=== PATIENT | female | born 2000 | race American Indian/Alaskan Native ===

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

== ENCOUNTER 2019-04-16 09:56 | Emergency (ER) | payer MEDICAID ==
[2019-04-16 10:15] VITALS: BP 112/68
--- NOTE | 2019-04-16 11:35 | Emergency Department Report ---
ED Medical Clearance HPI - General Chief complaint: Medical Clearance Stated complaint: ROGAIN SHOT/ Time Seen by Provider: 04/16/19 11:15 Source: patient Mode of arrival: Ambulatory Limitations: No Limitations - History of Present Illness Initial comments: This is a 18-year-old -[place] female who presents to the emergency room for Rhogam shot. Patient states she was sent here from [facility] for Rhogam shot. Her last menstrual period was 10/20/2018, . She denies abdominal pain, vaginal bleeding, back pain, nausea or vomiting. MD Complaint: medical clearance request Reason for Medical Clearance: laboratory abnormality Place: other (OBGYN office) Alledged Intoxication: No Associated Symptoms: denies other symptoms. denies: chest pain, shortness of breath, palpitations, diaphoresis, cough, rash Treatments Prior to Arrival: none Allergies/Adverse reactions: Allergies Allergy/AdvReac Type Severity Reaction Status Date / Time No Known Allergies Allergy Unverified 10/18/18 14:27 ED Review of Systems ROS: Stated complaint: ROGAIN SHOT/ Other details as noted in HPI Constitutional: denies: chills, fever Respiratory: denies: cough, shortness of breath, wheezing Cardiovascular: denies: chest pain, palpitations Gastrointestinal: denies: abdominal pain, nausea, diarrhea Musculoskeletal: denies: back pain, joint swelling, arthralgia Skin: denies: rash, lesions Neurological: denies: headache, weakness, paresthesias Psychiatric: denies: anxiety, depression ED Past Medical Hx - Past Medical History Previous Medical History?: No - Surgical History Past Surgical History?: No - Social History Smoking Status: Never Smoker Substance Use Type: None ED Physical Exam - General Limitations: No Limitations General appearance: alert, in no apparent distress - Respiratory Respiratory exam: Present: normal lung sounds bilaterally. Absent: respiratory distress - Cardiovascular Cardiovascular Exam: Present: regular rate, normal rhythm. Absent: systolic murmur, diastolic murmur, rubs, gallop - GI/Abdominal GI/Abdominal exam: Present: soft, normal bowel sounds - Neurological Exam Neurological exam: Present: alert, oriented X3 - Psychiatric Psychiatric exam: Present: normal affect, normal mood - Skin Skin exam: Present: warm, dry, intact, normal color. Absent: rash ED Course Vital Signs 04/16/19 10:14 Temperature 98.3 F Pulse Rate 81 Respiratory 20 Rate Blood Pressure 112/68 O2 Sat by Pulse 98 Oximetry - Reevaluation(s) Reevaluation #1: 04/16/19 15:08 I was informed by nursing staff that patient was not a room when Rhogam was ready for administration. The nurse called the patient and patient states she is down the street and will return for injection. ED Medical Decision Making - Medical Decision Making Patient was examined by me. Patient is nontoxic appearing and stable. Vitals are normal. Obtained Rhogam workup. Blood type is negative. Rhogam immunoglobulin is ordered. Nursing staff inform patient below prior to administration. Nursing staff spoke with patient and patient states she will return for administration. Prior to shift ending patient never returned. A shunt left AGAINST MEDICAL ADVICE. ED Disposition Clinical Impression: Left against medical advice Disposition: - LEFT AGAINST MED ADVICE Is pt being admited?: No Condition: Stable Referrals: PRIMARY CARE [Primary Care Provider] - 3-5 Days
== END 2019-04-16 14:40 | disposition left against medical advice (07) ==
LOC: ED 09:56
DX: O36.0910 Maternal care for other rhesus isoimmunization, first trimester, not applicable or unspecified (principal); Z3A.01 Less than 8 weeks gestation of pregnancy; Z53.21 Procedure and treatment not carried out due to patient leaving prior to being seen by health care provider
CPT/HCPCS: 36415; 84703; 85461; 86850; 86900; 86901; 96372; 99283; J2790

== ENCOUNTER 2019-06-12 13:23 | Inpatient (IN) | payer MEDICAID ==
[2019-06-12] MEDS ORDERED: fentaNYL 100 MCG/2 ML INJ IV PRN (15:26)
[2019-06-12] MEDS ORDERED: LIDOCAINE (2%) 20 MG/1 ML VIAL 20 ML MDV INFILTRATI ONE (15:26)
[2019-06-12] MEDS ORDERED: TERBUTALINE 1 MG/1 ML INJ SUB-Q PRN (15:26)
[2019-06-12] MEDS ORDERED: MINERAL OIL 30 ML ORAL LIQD PO PRN (15:26)
[2019-06-12] MEDS ORDERED: BUTORPHANOL 2 MG/1 ML INJ IV PRN (15:26)
[2019-06-12] MEDS ORDERED: TERBUTALINE 1 MG/1 ML INJ IVP PRN (15:26)
[2019-06-12] MEDS ORDERED: NALOXONE 0.4 MG/1 ML INJ IV PRN (15:26)
[2019-06-12] MEDS ORDERED: DINOPROSTONE 10 MG VAG SUPP VG ONE (15:26)
[2019-06-12] MEDS ORDERED: ePHEDrine SULFATE 50 MG/1 ML INJ IV PRN (15:26)
[2019-06-12 15:59] LABS: Bilirubin,Urine NEG (Negative); Blood,Urine NEG (Negative); Color,Urine Yellow (Yellow); Mucus,Urine FEW /HPF; Protein,Urine <15 mg/dL mg/dL (Negative); RBC,Urine < 1.0 /HPF (0.0-6.0); Urobilinogen,Urine < 2.0 mg/dL (<2.0)
[2019-06-12] MEDS ORDERED: OXYTOCIN 20 UNIT/1000ML DRIP 20 UNITS/1,000 ML BAG IV SCH (16:00)
[2019-06-12] MEDS ORDERED: OXYTOCIN DRIP 30 UNITS/500 ML BAG IV SCH (16:00)
[2019-06-12 17:10] LABS: Hemoglobin 10.8 gm/dl (10.1-14.3); Mean Corpuscular HGB Conc 33 % (30-34); Mean Corpuscular Volume 86 fl (79-97); Platelet Count 176 K/mm3 (140-440); Red Blood Count 3.84 M/mm3 (3.65-5.03); Red Cell Distribution Width 14.2 % (13.2-15.2)
[2019-06-12 17:31] LABS: Alanine Aminotransferase 9 units/L (7-56); Uric Acid 6.5 mg/dL (3.5-7.6)
--- NOTE | 2019-06-12 21:07 | History and Physical Report ---
History of Present Illness Date of examination: 06/12/19 Date of admission: 06/12/19 13:24 Chief complaint: sent from the office for induction History of present illness: Pt is a 18 year old -Surinamese primigravida HETAL 06/16/19 at 39w3d who presents from [facility] office with elevated blood pressures 140s/90s with instructions for delivery secondary to gestational hypertension. She denies headache, blurry vision, scotomata or RUQ pain. She has had care at [facility] since 14 wks complicated by RH negative status, Quad screen positive for Down's Syndrome, NIPT normal followed by [facility], genital herpes without lesion or prodrome and lapse of care between 33 and 39 wks. She is GBS unknown. Past History Past Medical History: hypertension (gestational hypertension per HPI ) Past Surgical History: no surgical history [employer] History: herpes (no lesion or prodrome ) Family/Genetic History: hypertension Social history: no significant social history - Obstetrical History Expected Date of Delivery: 06/16/19 Actual Gestation: 39 Week(s) 3 Day(s) : 1 Medications and Allergies Allergies Allergy/AdvReac Type Severity Reaction Status Date / Time No Known Allergies Allergy Verified 06/12/19 15:31 Active Meds: Active Medications Butorphanol Tartrate (Stadol) 2 mg IV Q2H PRN PRN Reason: Pain , Severe (7-10) Ephedrine Sulfate (Ephedrine Sulfate) 10 mg IV Q2M PRN PRN Reason: Hypotension Fentanyl (Sublimaze) 100 mcg IV Q2H PRN PRN Reason: Labor Pain Oxytocin/Sodium Chloride (Pitocin/Ns 20 Unit/1000ml Drip) 20 units in 1,000 mls @ 125 mls/hr IV DIRECT JENIFER Oxytocin/Sodium Chloride (Pitocin/Ns 30 Unit/500ml) 30 units in 500 mls @ 2 mls/hr IV TITR JENIFER; Protocol Lactated Ringer's (Lactated Ringers) 1,000 mls @ 125 mls/hr IV DIRECT JENIFER Mineral Oil (Mineral Oil) 30 ml PO QHS PRN PRN Reason: Constipation Naloxone HCl (Naloxone) 0.1 mg IV Q2MIN PRN PRN Reason: Res Rate </= 8 or 02 SAT < 92% Terbutaline Sulfate (Brethine) 0.25 mg SUB-Q ONCE PRN PRN Reason: Hyperstimulation/Hypertonicity Terbutaline Sulfate (Brethine) 0.25 mg IVP ONCE PRN PRN Reason: Hyperstimulation/Hypertonicity Review of Systems All systems: negative - Vital Signs Vital signs: Vital Signs Pulse Pulse Ox 70 100 06/12/19 15:39 06/12/19 15:39 Temp Pulse Resp BP Pulse Ox 97.7 F 77 20 140/88 100 06/12/19 18:19 06/12/19 21:01 06/12/19 18:19 06/12/19 20:35 06/12/19 21:01 - Physical Exam Breasts: Positive: deferred Cardiovascular: Regular rate Lungs: Positive: Clear to auscultation Abdomen: Positive: soft (gravid ) Uterus: Positive: enlarged (gravid ) Extremities: Positive: normal - Obstetrical FHR: auscultation normal Uterine Contraction Monitor Mode: External Cervical Dilatation: 1 Cervical Effacement Percentage: 50 station: -3 Uterine Contraction Pattern: Absent Uterine Tone Measurement Phase: Resting Results Result Diagrams: 06/12/19 16:14 06/12/19 16:14 Abnormal lab results 06/12/19 Range/Units 16:14 Creatinine 0.6 L (0.7-1.2) mg/dL Lactate Dehydrogenase 200 H (91-180) units/L All other labs normal. Assessment and Plan A: IUP at 39w3d Gestational Hypertension Genital Herpes without lesion or prodrome Quad screen positive for Down Syndrome, NIPT normal Rh negative GBS unknown P: Admit to labor and delivery Begin induction of labor with cervidil PIH panel Closely monitor maternal and status
[2019-06-12] MEDS ORDERED: AMPICILLIN/NS 2 GM/100 ML 2 GM/100 ML BAG IV ONE (21:13)
[2019-06-12] MEDS: LACTATED RINGERS 1,000 ML IV SCH (22:17)
[2019-06-13] MEDS ORDERED: AMPICILLIN/NS 1 GM/50 ML 1 GM/50 ML BAG IV SCH (01:30)
--- NOTE | 2019-06-13 09:56 | Progress Note ---
Assessment and Plan A: IUP at 39w4d Gestational Hypertension Genital Herpes without lesion or prodrome Quad screen positive for Down Syndrome, NIPT normal Rh negative GBS unknown P: Repeat PIH labs Cytotec for continued cervical ripening Closely monitor maternal and status Subjective - Subjective Date of service: 06/13/19 Interval history: Pt reports right upper quadrant pain this morning, which she reports first feeling about 3 wks ago. Denies blurred vision, scotomata or headache at this time. Good movement. Patient reports: movement normal, other (per HPI), no loss of fluid, no vaginal bleeding, no contractions Objective - Vital Signs Vital Signs: Vital Signs - 12hr 06/12/19 06/12/19 06/12/19 21:58 22:03 22:08 Temperature Pulse Rate 72 74 80 Respiratory Rate Blood Pressure O2 Sat by Pulse 99 99 99 Oximetry 06/12/19 06/12/19 06/12/19 22:12 22:13 22:16 Temperature 98.3 F Pulse Rate 72 72 Respiratory 16 Rate Blood Pressure 126/79 O2 Sat by Pulse 100 Oximetry 06/12/19 06/12/19 06/12/19 22:18 22:23 22:28 Temperature Pulse Rate 78 84 78 Respiratory Rate Blood Pressure O2 Sat by Pulse 100 99 100 Oximetry 06/12/19 06/12/19 06/12/19 22:33 22:38 22:43 Temperature Pulse Rate 77 75 80 Respiratory Rate Blood Pressure O2 Sat by Pulse 99 100 100 Oximetry 06/12/19 06/12/19 06/12/19 22:48 22:53 22:58 Temperature Pulse Rate 73 78 86 Respiratory Rate Blood Pressure O2 Sat by Pulse 99 100 100 Oximetry 06/12/19 06/12/19 06/12/19 23:03 23:08 23:13 Temperature Pulse Rate 71 69 74 Respiratory Rate Blood Pressure O2 Sat by Pulse 100 100 100 Oximetry 06/12/19 06/12/19 06/13/19 23:18 23:23 00:10 Temperature Pulse Rate 69 75 69 Respiratory Rate Blood Pressure 125/76 O2 Sat by Pulse 100 100 Oximetry 06/13/19 06/13/19 06/13/19 01:43 03:10 04:42 Temperature Pulse Rate 102 H 62 69 Respiratory Rate Blood Pressure 126/79 127/80 149/100 O2 Sat by Pulse Oximetry 06/13/19 06/13/19 06/13/19 06:12 06:43 07:40 Temperature Pulse Rate 59 L 83 68 Respiratory Rate Blood Pressure 164/106 132/79 133/83 O2 Sat by Pulse Oximetry 06/13/19 06/13/19 06/13/19 08:31 09:02 09:03 Temperature Pulse Rate 80 62 70 Respiratory Rate Blood Pressure 146/84 140/99 133/88 O2 Sat by Pulse Oximetry 06/13/19 06/13/19 06/13/19 09:05 09:10 09:15 Temperature Pulse Rate 92 H 68 66 Respiratory Rate Blood Pressure O2 Sat by Pulse 99 100 100 Oximetry 06/13/19 09:20 Temperature Pulse Rate 73 Respiratory Rate Blood Pressure O2 Sat by Pulse 100 Oximetry - Exam Breasts: deferred Abdomen: Present: soft (gravid ) FHR: auscultation normal, category 2 Uterine Contraction Monitor Mode: External Cervical Dilatation: 1 Uterine Contraction Pattern: Irregular Uterine Tone Measurement Phase: Resting Extremities: normal - Labs Labs: Abnormal Labs 06/12/19 16:14 Creatinine 0.6 L Lactate Dehydrogenase 200 H Laboratory Results - last 24 hr 06/12/19 06/12/19 06/12/19 15:45 16:14 16:14 WBC 8.2 RBC 3.84 Hgb 10.8 Hct 33.0 MCV 86 MCH 28 MCHC 33 RDW 14.2 Plt Count 176 Creatinine 0.6 L Estimated GFR > 60 Uric Acid 6.5 AST 14 ALT 9 Lactate Dehydrogenase 200 H Urine Color Yellow Urine Turbidity Clear Urine pH 5.0 Ur Specific [place] 1.018 Urine Protein <15 mg/dl Urine Glucose (UA) Neg Urine Ketones Neg Urine Blood Neg Urine Nitrite Neg Urine Bilirubin Neg Urine Urobilinogen < 2.0 Ur Leukocyte Esterase Neg Urine WBC (Auto) 2.0 Urine RBC (Auto) < 1.0 U Epithel Cells (Auto) 2.0 Urine Mucus Few Blood Type Antibody Screen 06/12/19 16:20 WBC RBC Hgb Hct MCV MCH MCHC RDW Plt Count Creatinine Estimated GFR Uric Acid AST ALT Lactate Dehydrogenase Urine Color Urine Turbidity Urine pH Ur Specific [place] Urine Protein Urine Glucose (UA) Urine Ketones Urine Blood Urine Nitrite Urine Bilirubin Urine Urobilinogen Ur Leukocyte Esterase Urine WBC (Auto) Urine RBC (Auto) U Epithel Cells (Auto) Urine Mucus Blood Type B NEGATIVE Antibody Screen Negative
[2019-06-13 10:37] LABS: Hematocrit 32.5 % (30.3-42.9); Mean Corpuscular HGB Conc 34 % (30-34); Mean Corpuscular Volume 84 fl (79-97); Platelet Count 169 K/mm3 (140-440); Red Blood Count 3.85 M/mm3 (3.65-5.03); Red Cell Distribution Width 14.3 % (13.2-15.2)
[2019-06-13] MEDS: miSOPROStol 25 MCG TAB VG SCH ×2 (10:51→15:16)
[2019-06-13 11:01] LABS: Alanine Aminotransferase 8 units/L (7-56); Uric Acid 6.1 mg/dL (3.5-7.6)
[2019-06-13] MEDS: LACTATED RINGERS 1,000 ML IV SCH ×2 (11:51→19:44)
[2019-06-13] MEDS ORDERED: FLU VACC QUAD 2019-20 (3 YR UP)/PF 60 MCG/0.5 ML SYRINGE IM ONE (12:00)
[2019-06-13] MEDS ORDERED: OXYTOCIN DRIP 30 UNITS/500 ML BAG IV SCH (19:02)
--- NOTE | 2019-06-14 10:25 | Progress Note ---
Assessment and Plan A: IUP at 39w5d Gestational Hypertension Genital Herpes without lesion or prodrome Quad screen positive for Down Syndrome, NIPT normal Rh negative GBS unknown P: Repeat PIH labs s/p cervidil, cytotec, pitocin discussed iol and failed since with dilating 1cm. discussed r/b/a of primary csec which include, bleeding infection damage to pelvic and non pelvic organs rrisk of deatrh and hysterectomy will proceed at 130p Subjective - Subjective Date of service: 06/14/19 Principal diagnosis: IOL for gestational HTN Patient reports: movement normal, other (per HPI), no new complaints, no loss of fluid, no vaginal bleeding, no contractions Objective - Vital Signs Vital Signs: Vital Signs - 12hr 06/13/19 06/13/19 06/13/19 23:15 23:19 23:31 Temperature Pulse Rate 70 72 Respiratory 18 Rate Blood Pressure 167/110 149/100 O2 Sat by Pulse Oximetry 06/13/19 06/13/19 06/13/19 23:40 23:45 23:50 Temperature Pulse Rate 90 72 70 Respiratory Rate Blood Pressure 160/85 118/64 118/62 O2 Sat by Pulse Oximetry 06/14/19 06/14/19 06/14/19 00:00 00:15 00:30 Temperature 98.1 F Pulse Rate 70 Respiratory 16 16 Rate Blood Pressure 113/55 O2 Sat by Pulse Oximetry 06/14/19 06/14/19 06/14/19 00:34 01:03 01:15 Temperature Pulse Rate 60 65 78 Respiratory Rate Blood Pressure 134/69 142/85 O2 Sat by Pulse 100 Oximetry 06/14/19 06/14/19 06/14/19 01:20 01:58 02:03 Temperature Pulse Rate 66 60 70 Respiratory Rate Blood Pressure 136/96 O2 Sat by Pulse 100 100 99 Oximetry 06/14/19 06/14/19 06/14/19 02:08 02:13 02:18 Temperature Pulse Rate 59 L 59 L 64 Respiratory Rate Blood Pressure O2 Sat by Pulse 99 99 99 Oximetry 06/14/19 06/14/19 06/14/19 02:23 02:28 02:33 Temperature Pulse Rate 65 65 74 Respiratory Rate Blood Pressure O2 Sat by Pulse 98 99 99 Oximetry 06/14/19 06/14/19 06/14/19 02:34 02:38 02:43 Temperature Pulse Rate 64 63 65 Respiratory Rate Blood Pressure 147/94 O2 Sat by Pulse 99 99 Oximetry 06/14/19 06/14/19 06/14/19 02:48 02:53 02:58 Temperature Pulse Rate 68 68 82 Respiratory Rate Blood Pressure O2 Sat by Pulse 99 100 98 Oximetry 06/14/19 06/14/19 06/14/19 03:03 03:08 03:13 Temperature Pulse Rate 67 67 75 Respiratory Rate Blood Pressure 137/91 O2 Sat by Pulse 99 100 99 Oximetry 06/14/19 06/14/19 06/14/19 03:18 03:23 03:28 Temperature Pulse Rate 69 104 H 60 Respiratory Rate Blood Pressure O2 Sat by Pulse 99 100 100 Oximetry 06/14/19 06/14/19 06/14/19 03:33 03:34 03:38 Temperature Pulse Rate 57 L 65 51 L Respiratory Rate Blood Pressure 127/89 O2 Sat by Pulse 100 100 Oximetry 06/14/19 06/14/19 06/14/19 03:43 03:48 03:53 Temperature Pulse Rate 59 L 84 53 L Respiratory Rate Blood Pressure O2 Sat by Pulse 100 100 100 Oximetry 06/14/19 06/14/19 06/14/19 03:58 04:03 04:08 Temperature Pulse Rate 47 L 70 72 Respiratory Rate Blood Pressure O2 Sat by Pulse 100 100 100 Oximetry 06/14/19 06/14/19 06/14/19 04:13 04:18 04:23 Temperature Pulse Rate 59 L 52 L 76 Respiratory Rate Blood Pressure O2 Sat by Pulse 100 100 100 Oximetry 06/14/19 06/14/19 06/14/19 04:28 04:33 04:35 Temperature Pulse Rate 58 L 81 58 L Respiratory Rate Blood Pressure 139/85 O2 Sat by Pulse 100 100 Oximetry 06/14/19 06/14/19 06/14/19 04:38 05:34 06:35 Temperature Pulse Rate 55 L 50 L 87 Respiratory Rate Blood Pressure 136/86 134/74 O2 Sat by Pulse 100 Oximetry 06/14/19 06/14/19 06/14/19 07:34 08:35 09:00 Temperature Pulse Rate 58 L 75 63 Respiratory Rate Blood Pressure 131/83 129/61 127/93 O2 Sat by Pulse Oximetry 06/14/19 06/14/19 09:31 10:00 Temperature Pulse Rate 71 75 Respiratory Rate Blood Pressure 172/105 146/89 O2 Sat by Pulse Oximetry - Exam Breasts: normal Cardiovascular: Regular rate, Normal S1 Lungs: Clear to auscultation, Normal air movement Abdomen: Present: normal appearance, soft, normal bowel sounds. Absent: distention, tenderness, guarding Vulva: both: normal Uterus: Present: normal, firm, fundal height below umbilicus. Absent: bogginess, tenderness FHR: category 1 Cervical Dilatation: 1 Uterine Contraction Pattern: Irregular Uterine Tone Measurement Phase: Resting Extremities: normal - Labs Labs: Abnormal Labs 06/12/19 06/13/19 16:14 10:08 Creatinine 0.6 L 0.5 L Lactate Dehydrogenase 200 H 188 H Laboratory Results - last 24 hr 06/13/19 06/13/19 10:08 10:08 WBC 7.4 RBC 3.85 Hgb 11.0 Hct 32.5 MCV 84 MCH 29 MCHC 34 RDW 14.3 Plt Count 169 Creatinine 0.5 L Estimated GFR > 60 Uric Acid 6.1 AST 14 ALT 8 Lactate Dehydrogenase 188 H
[2019-06-14] MEDS ORDERED: FAMOTIDINE 20 MG/2 ML INJ IV NR (10:30)
[2019-06-14] MEDS ORDERED: BICITRA ORAL LIQD 30ML PO NR (10:30)
[2019-06-14] MEDS ORDERED: METOCLOPRAMIDE 10 MG/2 ML INJ IV NR (11:00)
[2019-06-14] MEDS ORDERED: OXYTOCIN 20 UNIT/1000ML DRIP 20 UNITS/1,000 ML BAG IV SCH ×2 (11:00→16:00)
[2019-06-14] MEDS ORDERED: LACTATED RINGERS 1,000 ML IV SCH ×3 (11:00→23:45)
[2019-06-14] MEDS ORDERED: ceFAZolin/Water 2 GM/20 ML 2 GM/20 ML SYRINGE IV NR (11:00)
--- NOTE | 2019-06-14 14:30 | Anesthesia Consultation ---
Anesthesia Consult and Med Hx Date of service: 06/14/19 - Airway Anesthetic Teeth Evaluation: Good ROM Head & Neck: Adequate Mental/Hyoid Distance: Adequate - Pulmonary Exam CTA: Yes - Cardiac Exam Cardiac Exam: RRR - Pre-Operative Health Status ASA Pre-Surgery Classification: ASA2 Proposed Anesthetic Plan: Spinal - Pulmonary Hx Asthma: No COPD: No Hx Pneumonia: No - Cardiovascular System Hx Hypertension: No - Central Nervous System Hx Seizures: No Hx Psychiatric Problems: No - Endocrine Hx Renal Disease: No Hx End Stage Renal Disease: No Hx Hypothyroidism: No Hx Hyperthyroidism: No - Hematic Hx Anemia: No Hx Sickle Cell Disease: No - Other Systems Hx Alcohol Use: No
[2019-06-14] MEDS ORDERED: NALOXONE 0.4 MG/1 ML INJ IV PRN ×2 (14:31→15:49)
[2019-06-14] MEDS ORDERED: HYDROmorphone 1 MG/1 ML INJ IV PRN ×2 (14:31)
[2019-06-14] MEDS ORDERED: ONDANSETRON 4 MG/2 ML INJ IV PRN (14:31)
[2019-06-14] MEDS ORDERED: PROMETHAZINE 25 MG TAB PO PRN (14:31)
[2019-06-14] MEDS ORDERED: PROMETHAZINE 25 MG RECT SUPP PR PRN ×2 (14:31→15:49)
--- NOTE | 2019-06-14 14:31 | Anesthesia Day of Surgery ---
Anesthesia Day of Surgery - Day of Surgery Patient is NPO: Yes
[2019-06-14] MEDS ORDERED: DEXMEDETOMIDINE 200 MCG/2 ML VIAL IV ONE (14:43)
[2019-06-14] MEDS ORDERED: SODIUM CHLORIDE 0.9% IRR 1,500 ML BOTTLE IR ONE (14:45)
[2019-06-14] MEDS ORDERED: WATER FOR IRRIG STERILE 1,500 ML BOTTLE IR ONE (14:45)
[2019-06-14] MEDS ORDERED: fentaNYL-BUPIV 2 MCG/ML-0.125% 200 MCG/100 ML BAG EPIDURAL SCH (15:00)
[2019-06-14] MEDS ORDERED: HYDROmorphone 1 MG/1 ML INJ ONE (15:24)
[2019-06-14] MEDS ORDERED: KETOROLAC 30 MG/1 ML INJ ONE (15:25)
[2019-06-14] MEDS ORDERED: SENNOSIDES 8.6 MG TAB PO PRN (15:49)
[2019-06-14] MEDS ORDERED: HYDROCORTISONE 25 MG RECTAL SUPP PR PRN (15:49)
[2019-06-14] MEDS ORDERED: ACETAMINOPHEN 325 MG TAB PO PRN (15:49)
[2019-06-14] MEDS ORDERED: LANOLIN/ZINC/DIMETHICONE (LANSINOH) 7 GM TP PRN (15:49)
[2019-06-14] MEDS ORDERED: MAGNESIUM HYDROXIDE (MOM) ORAL LIQD UDC PO PRN (15:49)
[2019-06-14] MEDS ORDERED: WITCH HAZEL/ GLYCERIN PAD TP PRN (15:49)
[2019-06-14] MEDS ORDERED: KETOROLAC 30 MG/1 ML INJ IV PRN ×2 (15:49)
[2019-06-14] MEDS ORDERED: IBUPROFEN 800 MG TAB PO PRN (15:49)
[2019-06-14] MEDS ORDERED: SIMETHICONE 80 MG CHEW TAB PO PRN (15:49)
[2019-06-14] MEDS ORDERED: MORPHINE 4 MG/1 ML INJ IV PRN (15:49)
[2019-06-14] MEDS ORDERED: oxyCODONE /ACETAMINOPHEN 5-325MG TAB PO PRN (15:49)
--- NOTE | 2019-06-14 15:49 | Procedure Note ---
OB Delivery Note - Delivery Date of Delivery: 06/14/19 Surgeon: ANABEL WEINSTEIN Estimated blood loss: other (800cc) - Section Preop diagnosis: other (Failed IOL) Postop diagnosis: same section procedure: section Disposition: PACU Complications: none Narrative: see op note - Infant A at 1 minute: 8 at 5 minutes: 9 Gender: Male (5 pounds 15 oz)
--- NOTE | 2019-06-14 15:56 | Operative Report ---
Operative Report Operative Report: DATE OF OPERATION: 06/14/19 PREOPERATIVE DIAGNOSES: 1. Intrauterine gestation at 39+3 weeks, in active labor, second stage. 2. Failed IOL 3.Gestational HTN 4. IUGR POSTOPERATIVE DIAGNOSES: 1. Intrauterine gestation at 39+3 weeks, in active labor, second stage. 2. Failed IOL 3. Gestational HTN 4. IUGR OPERATION PERFORMED: Primary low transverse section. SURGEON: Eulalia Calderón MD ANESTHESIA: Epidural. COMPLICATIONS: None. ESTIMATED BLOOD LOSS: 800 mL. DRAINS: Bojorquez catheter to the bladder. SPECIMENS TO PATHOLOGY: Cord blood for routine testing. OPERATIVE FINDINGS: A viable male with Apgars of 8 and 9 and birthweight of 5 pounds 15 ounces was delivered from a cephalic presentation, persistent occiput posterior position. . The cord contained 3 vessels. There was normal anterior fundal placenta. The amniotic fluid was clear. The uterus, fallopian tubes and ovaries were normal. DESCRIPTION OF OPERATION: The patient was brought to the operating suite in stable condition with epidural anesthesia on board and an indwelling catheter in place in the bladder. The patient was placed supine on the operating room table and rolled to her left side with a wedge. The abdomen was prepped and draped in standard fashion for section. After testing with forceps to assure an adequate anesthetic level, the surgery was commenced. We had counseled the patient extensively regarding the risks of the surgery including but not limited to stroke, embolus, phlebitis, pain, infection, hemorrhage, as well as injury to the and the internal organs such as the bowel, bladder, blood vessels, nerves, kidneys, ureters and pelvic organs. The patient was aware of the postoperative morbidity issues and recovery timeframes. The patient was aware she can form adhesions, which can result in obstruction of loop of bowel or ureter or chronic pain. She was aware that should she have hemorrhage and require blood transfusion, there was a small chance for exposure to hepatitis or HIV disease. With the scalpel, a Pfannenstiel skin incision was made. Dissection was carried down sharply through the subcutaneous tissues and fascia in a transverse plane with the scalpel, electrocautery and curved Shepard scissors. The fascia was sharply freed up superiorly and inferiorly from the underlying rectus muscles, which were bluntly and sharply divided. The peritoneum was entered carefully in a clear space with a curved hemostat. The peritoneal incision was then extended vertically with Metzenbaum scissors. A retractor and bladder blade were placed. A bladder flap was created by incising transversely through the peritoneum and vesicouterine fold and then bluntly dissecting the bladder distally. With the scalpel, a low transverse hysterotomy was commenced. The serosa and myometrium were scored with the scalpel. The uterine cavity was actually entered bluntly with a curved hemostat. The uterine incision was then extended laterally with the an/syq 13 nav/c2 operator's fingers. An intrauterine hand was placed and the head of the infant was brought up out of the pelvis into the uterine incision. With fundal pressure, he was delivered without difficulty. The nasopharynx and oropharynx were suctioned. The cord was doubly clamped and transected. The infant was then handed off to the nursery personnel. Apgars were good at 8 and 9. A cord pH was obtained, which subsequently revealed a normal value. Further cord blood was collected for routine testing. Intravenous Pitocin and antibiotics were administered. The placenta was manually removed. The uterine cavity was then curetted with a dry sponge and freed of the remaining membranes. The edges of the uterine incision were grasped with Riggs clamps. With the massage and the Pitocin, the uterus began to firm up normally. The uterine incision was then closed in 2 layers of 0 Vicryl sutures. The first suture was placed to the endometrium and myometrium. The second suture was placed through the endopelvic fascia and also reincorporated the bladder flap peritoneum. Peritoneal lavage was then performed. The pelvis and gutters were irrigated and suctioned and cleared of all blood and clots and amniotic fluid. The uterine incision was reinspected to assure hemostasis. The uterus, tubes and ovaries were inspected and were normal. Once we were satisfied with the hemostasis, attention was turned to closure of the abdominal incision. The peritoneum, muscles and fascia were closed in layers using 0-Vicryl sutures. The subcutaneous tissue was closed with 3-0 plain sutures. The skin was closed with a subcuticular suture of 4-0 Vicryl followed by benzoin, Steri-Strips and a Telfa dressing. The patient was moved to the recovery room in stable condition with the Bojorquez catheter draining clear urine. Instruments, sponge and needle counts were reported as correct. Estimated blood loss was 800 mL. There were no complications.
[2019-06-14] MEDS ORDERED: D5W/LACTATED RINGERS 1,000 ML IV SCH (16:00)
--- NOTE | 2019-06-14 16:01 | Post Anesthesia Evaluation ---
- Post Anesthesia Evaluation Patient Participated: Yes Airway Patent: Yes Stable Respiratory Function: Yes Nausea/Vomiting: No Temp > 96.8F: Yes Pain Manageable: Yes Adequeate Hydration: Yes Anesthesia Complications: No Block Receding Appropriately: Yes Patient on Ventilator: No
[2019-06-14 16:33] LABS: Basophils % (Auto) 0.4 % (0.0-1.8); Eosinophils % (Auto) 0.1 % (0.0-4.3); Hematocrit 28.9 % (30.3-42.9); Hemoglobin 9.7 gm/dl (10.1-14.3); Lymphocytes # (Auto) 1.5 K/mm3 (1.2-5.4); Lymphocytes % (Auto) 23.9 % (13.4-35.0); Mean Corpuscular HGB Conc 34 % (30-34); Mean Corpuscular Volume 86 fl (79-97); Monocytes # (Auto) 0.5 K/mm3 (0.0-0.8); Monocytes % (Auto) 7.7 % (0.0-7.3); Platelet Count 140 K/mm3 (140-440); Red Blood Count 3.36 M/mm3 (3.65-5.03); Red Cell Distribution Width 14.3 % (13.2-15.2)
[2019-06-14] MEDS: HYDROcodone/ACETAMINOPHEN 5-325 MG TAB PO PRN (19:44)
[2019-06-14] MEDS: MORPHINE 2 MG/1 ML INJ IV PRN (21:09)
[2019-06-14 22:13] LABS: Hematocrit 27.3 % (30.3-42.9); Hemoglobin 9.5 gm/dl (10.1-14.3); Mean Corpuscular HGB Conc 35 % (30-34); Mean Corpuscular Volume 85 fl (79-97); Platelet Count 148 K/mm3 (140-440); Red Blood Count 3.23 M/mm3 (3.65-5.03); Red Cell Distribution Width 14.2 % (13.2-15.2)
[2019-06-14 22:24] LABS: INR 0.91 (0.87-1.13)
[2019-06-14 22:25] LABS: Partial Thromboplastin Time 30.2 Sec. (24.2-36.6)
[2019-06-14 22:32] LABS: Alanine Aminotransferase 9 units/L (7-56); Uric Acid 6.8 mg/dL (3.5-7.6)
[2019-06-14] MEDS ORDERED: MAGNESIUM SULFATE 40GM/1000ML 40 GM/1,000 ML BAG IV ONE (22:45)
[2019-06-14 23:07] LABS: Alanine Aminotransferase 8 units/L (7-56); Albumin 2.7 g/dL (3.9-5); BUN/Creatinine Ratio 10; Blood Urea Nitrogen 7 mg/dL (7-17); Calcium 8.2 mg/dL (8.4-10.2); Hemolysis Index 1
[2019-06-14 23:13] LABS: Bilirubin,Direct < 0.2 mg/dL (0-0.2)
[2019-06-14] MEDS ORDERED: CALCIUM GLUCONATE 1000 MG/10 ML INJ IV ONE (23:14)
[2019-06-14] MEDS ORDERED: hydrALAZINE 20 MG/1 ML INJ IV PRN (23:14)
[2019-06-14] MEDS ORDERED: MAGNESIUM SULFATE 4 GM/100 ML BAG IV ONE (23:14)
[2019-06-14] MEDS ORDERED: hydrALAZINE 20 MG/1 ML INJ ONE (23:16)
--- NOTE | 2019-06-14 23:21 | Event Note ---
Date: 06/14/19 (2129) Pt's blood pressure has been elevated, several severe range. She denies headache but reports new onset blurred vision since 1300 today. Transfer to L&D for Magnesium Sulfate x24 hours.
[2019-06-14] MEDS: LACTATED RINGERS 1,000 ML IV SCH (23:30)
[2019-06-14] MEDS ORDERED: MAGNESIUM SULFATE 40GM/1000ML 40 GM/1,000 ML BAG IV SCH (23:45)
[2019-06-15 01:27] LABS: Hematocrit 28.8 % (30.3-42.9); Hemoglobin 9.6 gm/dl (10.1-14.3); Mean Corpuscular HGB Conc 33 % (30-34); Mean Corpuscular Volume 86 fl (79-97); Platelet Count 151 K/mm3 (140-440); Red Blood Count 3.36 M/mm3 (3.65-5.03); Red Cell Distribution Width 14.4 % (13.2-15.2)
[2019-06-15 01:40] LABS: Alanine Aminotransferase 8 units/L (7-56); Albumin 2.7 g/dL (3.9-5); BUN/Creatinine Ratio 10; Blood Urea Nitrogen 7 mg/dL (7-17); Calcium 8.3 mg/dL (8.4-10.2); Hemolysis Index 2
[2019-06-15 01:59] LABS: INR 0.94 (0.87-1.13)
[2019-06-15 02:00] LABS: Partial Thromboplastin Time 30.8 Sec. (24.2-36.6)
[2019-06-15 02:14] LABS: Bilirubin,Direct < 0.2 mg/dL (0-0.2)
[2019-06-15] MEDS: MORPHINE 2 MG/1 ML INJ IV PRN ×2 (03:06→17:58)
[2019-06-15 05:57] LABS: Hematocrit 26.1 % (30.3-42.9); Hemoglobin 8.7 gm/dl (10.1-14.3)
[2019-06-15] MEDS ORDERED: TETANUS,DIPH,PERTUSS(ACELL) VACCINE 0.5 ML SYRINGE IM ONE (06:00)
[2019-06-15] MEDS ORDERED: MEASLES, MUMPS & RUBELLA 12,500 UNIT/0.5 ML VACCINE SUB-Q ONE (06:00)
[2019-06-15 08:04] LABS: Bacteria,Urine 1+ /HPF (Negative); Bilirubin,Urine NEG (Negative); Blood,Urine SM (Negative); Color,Urine Straw (Yellow); Mucus,Urine FEW /HPF; Protein,Urine <15 mg/dL mg/dL (Negative); Urobilinogen,Urine < 2.0 mg/dL (<2.0)
--- NOTE | 2019-06-15 08:31 | Progress Note ---
Assessment and Plan A: POD#1 s/p primary section secondary to severe PIH, Anemia P: Routine postop care. 24 hrs of magnesium Subjective - Subjective Date of service: 06/15/19 Principal diagnosis: PIH with severe features, s/p primary Interval history: Pt comfortable. On magnesium for seizure prophylaxis. No flatus. Patient reports: appetite normal, no voiding normally (marion in place ), no f latus, no bowel movement, no ambulating normally (SCDs on ) [place]: doing well Objective - Vital Signs Latest vital signs: Vital Signs Temp Pulse Resp BP BP Pulse Ox 06/15/19 08:21 90 99 06/15/19 08:16 89 98 06/15/19 08:11 98 H 99 06/15/19 08:06 98 H 99 06/15/19 08:01 92 H 98 06/15/19 08:00 90 135/72 06/15/19 07:55 98.5 F 87 16 135/72 99 06/15/19 07:02 86 133/87 06/15/19 06:02 102 H 127/79 06/15/19 05:02 89 134/84 06/15/19 04:02 85 127/77 06/15/19 04:00 98.1 F 18 06/15/19 02:02 90 134/85 06/15/19 01:02 92 H 141/91 06/15/19 00:18 104 H 99 06/15/19 00:13 101 H 99 06/15/19 00:08 96 H 99 06/15/19 00:03 90 99 06/15/19 00:02 89 146/100 06/15/19 00:00 98.4 F 06/14/19 23:58 85 98 06/14/19 23:53 83 159/102 99 06/14/19 23:51 75 159/102 06/14/19 23:48 75 100 06/14/19 23:43 72 100 06/14/19 23:38 90 100 06/14/19 23:33 79 151/104 100 06/14/19 23:28 78 100 06/14/19 23:23 64 100 06/14/19 23:18 67 99 06/14/19 23:13 78 99 06/14/19 23:08 63 100 06/14/19 23:03 89 99 06/14/19 23:02 75 151/104 06/14/19 22:58 72 98 06/14/19 22:53 76 99 06/14/19 22:00 98.2 F 18 06/14/19 21:35 141/101 06/14/19 21:30 103 H 132/86 06/14/19 20:00 98.7 F 78 16 153/104 06/14/19 18:00 98.1 F 68 18 126/85 98 06/14/19 17:00 97.8 F 80 16 128/100 97 06/14/19 16:45 98.6 F 87 16 130/90 97 06/14/19 16:30 98.6 F 87 15 129/102 97 06/14/19 16:10 98.6 F 84 12 123/81 97 06/14/19 16:05 98.6 F 74 13 114/79 97 06/14/19 16:00 98.6 F 86 16 130/90 100 06/14/19 14:30 64 141/79 06/14/19 14:01 68 148/92 06/14/19 13:01 76 150/92 06/14/19 12:30 68 151/89 06/14/19 12:05 58 L 160/97 06/14/19 12:01 81 164/99 06/14/19 11:30 65 165/103 06/14/19 11:01 85 136/78 06/14/19 10:00 75 146/89 06/14/19 09:31 71 172/105 06/14/19 09:00 63 127/93 06/14/19 08:35 75 129/61 Intake and Output 06/14/19 06/15/19 06/15/19 22:59 06:59 14:59 Intake Total 2500 Output Total 672 234 Balance 2500 -672 -234 Intake: IV 2500 Output: Urine 672 234 Indwelling Catheter 672 234 Other: Total, Output Amount 84 150 - Exam Breasts: Present: deferred Cardiovascular: Present: Regular rate Lungs: Present: Clear to auscultation Abdomen: Present: soft Uterus: Present: fundal height at umbilicus Extremities: Present: normal (SCDs in place ) Incision: Present: dressed - Labs Labs: Abnormal lab results 06/14/19 06/14/19 06/14/19 Range/Units 16:07 21:57 21:57 RBC 3.36 L 3.23 L (3.65-5.03) M/mm3 Hgb 9.7 L 9.5 L (10.1-14.3) gm/dl Hct 28.9 L 27.3 L (30.3-42.9) % MCHC 35 H (30-34) % Amelia % (Auto) 7.7 H (0.0-7.3) % Chloride 109.1 H (98-107) mmol/L Carbon Dioxide 21 L (22-30) mmol/L Calcium 8.2 L (8.4-10.2) mg/dL Magnesium 1.50 L (1.7-2.3) mg/dL Lactate Dehydrogenase (91-180) units/L Total Protein 5.7 L (6.3-8.2) g/dL Albumin 2.7 L (3.9-5) g/dL Urine WBC (Auto) (0.0-6.0) /HPF 06/14/19 06/15/19 06/15/19 Range/Units 21:57 00:28 00:28 RBC 3.36 L (3.65-5.03) M/mm3 Hgb 9.6 L (10.1-14.3) gm/dl Hct 28.8 L (30.3-42.9) % MCHC (30-34) % Amelia % (Auto) (0.0-7.3) % Chloride (98-107) mmol/L Carbon Dioxide (22-30) mmol/L Calcium 8.3 L (8.4-10.2) mg/dL Magnesium (1.7-2.3) mg/dL Lactate Dehydrogenase 205 H (91-180) units/L Total Protein 5.6 L (6.3-8.2) g/dL Albumin 2.7 L (3.9-5) g/dL Urine WBC (Auto) (0.0-6.0) /HPF 06/15/19 06/15/19 06/15/19 Range/Units 05:42 05:42 06:50 RBC (3.65-5.03) M/mm3 Hgb 8.7 L (10.1-14.3) gm/dl Hct 26.1 L (30.3-42.9) % MCHC (30-34) % Amelia % (Auto) (0.0-7.3) % Chloride (98-107) mmol/L Carbon Dioxide (22-30) mmol/L Calcium (8.4-10.2) mg/dL Magnesium 3.30 H (1.7-2.3) mg/dL Lactate Dehydrogenase (91-180) units/L Total Protein (6.3-8.2) g/dL Albumin (3.9-5) g/dL Urine WBC (Auto) 19.0 H (0.0-6.0) /HPF
[2019-06-15] MEDS ORDERED: PRENATAL VIT27-FE FUMARATE-FOLIC ACID VIT TAB PO SCH (10:00)
[2019-06-15] MEDS ORDERED: FERROUS SULFATE 325 MG TAB PO SCH (10:00)
[2019-06-15] MEDS ORDERED: ACETAMINOPHEN 500 MG TAB ONE (18:43)
[2019-06-15] MEDS ORDERED: ACETAMINOPHEN 500 MG TAB PO ONE (18:47)
[2019-06-15] MEDS: HYDROcodone/ACETAMINOPHEN 5-325 MG TAB PO PRN (20:20)
[2019-06-16] MEDS ORDERED: MAGNESIUM HYDROXIDE (MOM) ORAL LIQD UDC PO PRN (01:31)
[2019-06-16] MEDS ORDERED: OXYTOCIN 20 UNIT/1000ML DRIP 20 UNITS/1,000 ML BAG IV SCH (01:31)
[2019-06-16] MEDS ORDERED: D5W/LACTATED RINGERS 1,000 ML IV SCH (01:31)
[2019-06-16] MEDS ORDERED: KETOROLAC 30 MG/1 ML INJ IV PRN (01:31)
[2019-06-16] MEDS ORDERED: NALOXONE 0.4 MG/1 ML INJ IV PRN (01:31)
[2019-06-16] MEDS ORDERED: WITCH HAZEL/ GLYCERIN PAD TP PRN (01:31)
[2019-06-16] MEDS ORDERED: ONDANSETRON 4 MG/2 ML INJ IV PRN (01:31)
[2019-06-16] MEDS: ceFAZolin/NS 1 GM/50 ML 1 GM/50 ML BAG IV SCH ×2 (01:48→11:21)
[2019-06-16] MEDS: oxyCODONE /ACETAMINOPHEN 5-325MG TAB PO PRN ×2 (01:54→09:58)
[2019-06-16] MEDS: IBUPROFEN 800 MG TAB PO PRN ×2 (05:54→16:55)
[2019-06-16] MEDS ORDERED: TETANUS,DIPH,PERTUSS(ACELL) VACCINE 0.5 ML SYRINGE IM ONE (06:00)
[2019-06-16] MEDS ORDERED: MEASLES, MUMPS & RUBELLA 12,500 UNIT/0.5 ML VACCINE SUB-Q ONE (06:00)
[2019-06-16] MEDS: PRENATAL VIT27-FE FUMARATE-FOLIC ACID VIT TAB PO SCH (09:58)
[2019-06-16 11:44] LABS: Hematocrit 27.5 % (30.3-42.9); Hemoglobin 9.1 gm/dl (10.1-14.3)
--- NOTE | 2019-06-16 14:10 | Progress Note ---
Assessment and Plan A: POD#2 s/p primary section secondary to severe PIH s/p magnesium sulfate for seizure prophylaxis, Anemia P: Routine postop care. Anticipate discharge on POD#3. Subjective - Subjective Date of service: 06/16/19 Principal diagnosis: PIH with severe features, s/p primary Interval history: Pt comfortable. On magnesium for seizure prophylaxis.+ flatus. no bowel movement Patient reports: appetite normal, voiding normally, pain well controlled, flatus, ambulating normally, no bowel movement [place]: doing well Objective - Vital Signs Latest vital signs: Vital Signs Temp Pulse Resp BP BP Pulse Ox 06/16/19 10:58 18 06/16/19 09:58 18 06/16/19 08:38 98.1 F 92 H 18 126/84 98 06/16/19 06:54 18 06/16/19 05:58 98.2 F 81 18 123/74 98 06/16/19 05:54 18 06/16/19 02:54 18 06/16/19 01:54 18 06/16/19 01:05 98.6 F 84 18 133/82 99 06/15/19 23:52 70 86 06/15/19 23:50 89 98 06/15/19 23:45 90 98 06/15/19 23:44 88 123/85 06/15/19 23:40 88 98 06/15/19 23:35 89 98 06/15/19 23:30 91 H 99 06/15/19 23:25 95 H 99 06/15/19 23:20 96 H 98 06/15/19 23:15 97 H 99 06/15/19 23:13 86 120/77 06/15/19 23:10 93 H 98 06/15/19 23:05 87 98 06/15/19 23:00 82 98 06/15/19 22:55 83 97 06/15/19 22:50 83 97 06/15/19 22:45 85 98 06/15/19 22:44 80 116/67 06/15/19 22:40 84 97 06/15/19 22:35 85 97 06/15/19 22:30 84 97 06/15/19 22:25 90 97 06/15/19 22:20 85 97 06/15/19 22:15 82 99 06/15/19 22:14 85 134/81 06/15/19 22:10 87 98 06/15/19 22:05 89 98 06/15/19 22:00 87 98 06/15/19 21:55 90 98 06/15/19 21:50 86 99 06/15/19 21:49 93 H 129/83 06/15/19 21:45 101 H 99 06/15/19 21:43 88 131/91 06/15/19 21:40 97 H 98 06/15/19 21:35 88 98 06/15/19 21:30 88 97 06/15/19 21:25 91 H 98 06/15/19 21:20 101 H 97 06/15/19 21:15 99 H 97 06/15/19 21:14 93 H 126/71 06/15/19 21:10 98 H 97 06/15/19 21:05 98 H 97 06/15/19 21:00 104 H 98 06/15/19 20:55 99 H 98 06/15/19 20:50 98 H 97 06/15/19 20:47 99.1 F 18 100 06/15/19 20:45 103 H 97 06/15/19 20:43 105 H 142/94 06/15/19 20:40 94 H 92 06/15/19 20:35 93 H 99 06/15/19 20:30 95 H 98 06/15/19 20:25 92 H 98 06/15/19 20:14 92 H 136/85 06/15/19 20:02 95 H 99 06/15/19 19:43 96 H 139/89 06/15/19 19:23 108 H 98 06/15/19 19:18 93 H 99 06/15/19 19:14 95 H 149/93 06/15/19 19:13 94 H 98 06/15/19 19:08 91 H 99 06/15/19 19:03 92 H 99 06/15/19 18:58 91 H 99 06/15/19 18:53 101 H 99 06/15/19 18:48 103 H 99 06/15/19 18:43 95 H 139/87 99 06/15/19 18:38 95 H 99 06/15/19 18:34 90 13 138/89 06/15/19 18:33 95 H 99 06/15/19 18:31 100 H 138/89 06/15/19 18:28 97 H 99 06/15/19 18:23 103 H 99 06/15/19 18:18 98 H 99 06/15/19 18:13 100 H 138/94 99 06/15/19 17:58 18 06/15/19 17:03 99 H 138/98 06/15/19 17:00 98 H 100 06/15/19 16:55 81 99 06/15/19 16:50 104 H 99 06/15/19 16:45 102 H 99 06/15/19 16:40 93 H 100 06/15/19 16:35 96 H 100 06/15/19 16:34 90 151/93 06/15/19 16:30 103 H 100 06/15/19 16:25 95 H 99 06/15/19 16:20 101 H 99 06/15/19 16:15 99 H 99 06/15/19 16:10 101 H 99 06/15/19 16:05 97 H 99 06/15/19 16:00 97 H 99 06/15/19 15:55 93 H 99 06/15/19 15:50 100 06/15/19 15:48 95 H 141/88 06/15/19 15:45 100 H 100 06/15/19 15:37 94 H 99 06/15/19 15:32 92 H 98 06/15/19 15:27 94 H 100 06/15/19 15:22 90 100 06/15/19 15:17 94 H 100 06/15/19 15:12 89 100 06/15/19 15:07 99 H 99 06/15/19 15:02 97 H 148/88 99 06/15/19 14:57 98 H 99 06/15/19 14:52 98 H 100 06/15/19 14:47 93 H 100 06/15/19 14:42 109 H 100 06/15/19 14:37 96 H 100 06/15/19 14:32 99 H 100 06/15/19 14:27 100 H 99 06/15/19 14:22 87 99 06/15/19 14:17 102 H 99 06/15/19 14:12 93 H 99 Intake and Output 06/15/19 06/16/19 06/16/19 22:59 06:59 14:59 Intake Total 50 240 Output Total 2900 900 Balance -2900 -850 240 Intake: IV 50 ANCEF/NS 1 GM/50 ML 1 gm 50 In 50 ml @ 100 mls/hr IV Q8H [facility] Rx#:[id number] Oral 240 Output: Urine 2900 900 Indwelling Catheter 2200 900 Uretheral (Bojorquez) 700 Other: Total, Intake Amount 240 Total, Output Amount 75 900 - Exam Breasts: Present: deferred Cardiovascular: Present: Regular rate Lungs: Present: Clear to auscultation Abdomen: Present: soft Uterus: Present: fundal height below umbilicus - Labs Labs: Abnormal lab results 06/15/19 06/16/19 Range/Units 19:25 11:25 Hgb 9.1 L (10.1-14.3) gm/dl Hct 27.5 L (30.3-42.9) % Magnesium 3.40 H (1.7-2.3) mg/dL
[2019-06-17] MEDS: oxyCODONE /ACETAMINOPHEN 5-325MG TAB PO PRN ×3 (00:23→11:10)
--- NOTE | 2019-06-17 08:11 | Progress Note ---
Assessment and Plan A: POD#3 s/p primary section secondary to severe PIH s/p magnesium sulfate for seizure prophylaxis, Anemia P: Discharge today with follow up in 1 wk for blood pressure check Subjective - Subjective Date of service: 06/17/19 Principal diagnosis: PIH with severe features, s/p primary Interval history: Pt comfortable. s/p 24 hrs of magnesium sulfate.+ flatus. + bowel movement Patient reports: appetite normal, voiding normally, pain well controlled, flatus, bowel movement, ambulating normally : doing well Objective - Vital Signs Latest vital signs: Vital Signs Temp Pulse Resp BP Pulse Ox 06/17/19 05:46 20 06/17/19 01:07 98.1 F 89 20 136/84 97 06/17/19 00:23 20 06/16/19 19:50 18 06/16/19 17:23 98.2 F 74 48 H 135/97 98 06/16/19 10:58 18 06/16/19 09:58 18 06/16/19 08:38 98.1 F 92 H 18 126/84 98 Intake and Output 06/16/19 06/17/19 06/17/19 22:59 06:59 14:59 Intake Total 1320 240 Balance 1320 240 Intake: Oral 840 240 Intake, Free Water 480 Other: Total, Intake Amount 240 240 # Voids Void 4 1 # Bowel Movements 1 - Exam Breasts: Present: deferred Cardiovascular: Present: Regular rate Lungs: Present: Clear to auscultation Abdomen: Present: soft Uterus: Present: fundal height below umbilicus Extremities: Present: normal Incision: Present: intact - Labs Labs: Abnormal lab results 06/16/19 Range/Units 11:25 Hgb 9.1 L (10.1-14.3) gm/dl Hct 27.5 L (30.3-42.9) %
--- NOTE | 2019-06-17 08:11 | Discharge Summary ---
Providers - Providers Date of Admission: 06/12/19 13:24 Date of discharge: 06/17/19 Attending physician: DENNIS LIEBERMAN Primary care physician: DENNIS LIEBERMAN Hospitalization Reason for admission: induction of labor Delivery: Procedure: section, primary low transverse Procedure details: Please see operative report. Incision: intact Other procedures: none complications: none Discharge diagnosis: IUP at term delivered baby: male Hospital course: Pt was admitted for induction of labor secondary to gestational hypertension. Her labor failed to progress and she underwent primary section which she tolerated well. Postoperatively she developed severe range blood pressures and was started on magnesium sulfate for seizure prophylaxis. Her postop course was uncomplicated and she met discharge criteria on POD#3. She will follow up in 1 week for a blood pressure check in the office. Condition at discharge: Stable Disposition: DC-01 TO HOME OR SELFCARE - Discharge Diagnoses (1) Term of male Status: Acute (2) Preeclampsia Status: Acute Qualifiers: Trimester: third trimester Qualified Code(s): O14.93 - Unspecified pre- eclampsia, third trimester (3) Anemia Status: Acute Qualifiers: Anemia type: unspecified type Qualified Code(s): D64.9 - Anemia, unspecified (4) S/P section Status: Acute Plan - Discharge Medications Prescriptions: Ferrous Sulfate [Feosol 325 MG tab] 325 mg PO BID #60 tablet Ibuprofen [Motrin] 800 mg PO Q8HR PRN #30 tablet PRN Reason: Pain, Moderate (4-6) oxyCODONE /ACETAMINOPHEN [Percocet 5/325] 1 tab PO Q6HR PRN #40 tablet PRN Reason: Pain - Provider Discharge Summary Activity: routine, no sex for 6 weeks, no heavy lifting 4 weeks, no strenuous exercise Diet: routine Instructions: routine Additional instructions: [] Smoking cessation referral if applicable(refer to patient education folder for contact #) [] Refer to [facility] Booklet Call your doctor immediately for: * Fever > 100.5 * Heavy vaginal bleeding ( >1 pad per hour) * Severe persistent headache * Shortness of breath * Reddened, hot, painful area to leg or breast * Drainage or odor from incision. * Keep incision clean and dry at all times and follow doctor's instructions regarding bathing/showering - Follow up plan Follow up: DENNIS LIEBERMAN MD [Primary Care Provider] - 06/25/19 (Please schedule appt for blood pressure check )
[2019-06-17] MEDS ORDERED: TETANUS,DIPH,PERTUSS(ACELL) VACCINE 0.5 ML SYRINGE IM ONE (10:00)
[2019-06-17] MEDS: PRENATAL VIT27-FE FUMARATE-FOLIC ACID VIT TAB PO SCH (11:11)
[2019-06-17] MEDS ORDERED: FLU VACC QUAD 2019-20 (3 YR UP)/PF 60 MCG/0.5 ML SYRINGE IM ONE (12:00)
[2019-06-17 13:52] VITALS: BP 121/71
== END 2019-06-17 14:35 | disposition home or self-care (01) | DRG 765 ==
LOC: TRG 13:23 → LD 13:24 → TRG 16:29 → LD 06-13 16:13 → OB 06-14 18:26 → LD 06-14 22:32 → OB 06-16 00:58
PROVIDERS: ADMIT Obstetrics & Gynecology; ATTEND Obstetrics & Gynecology
PROC: 3E0P7VZ Introduction of Hormone into Female Reproductive, Via Natural or Artificial Opening (ICD-10-PCS; 2019-06-13)
PROC: 3E0234Z Introduction of Serum, Toxoid and Vaccine into Muscle, Percutaneous Approach (ICD-10-PCS; 2019-06-13)
PROC: 10D00Z1 Extraction of Products of Conception, Low, Open Approach (ICD-10-PCS; principal; 2019-06-14)
DX: O13.4 Gestational [pregnancy-induced] hypertension without significant proteinuria, complicating childbirth (principal); O98.32 Other infections with a predominantly sexual mode of transmission complicating childbirth; O36.5930 Maternal care for other known or suspected poor fetal growth, third trimester, not applicable or unspecified; O90.81 Anemia of the puerperium; D64.9 Anemia, unspecified; O14.94 Unspecified pre-eclampsia, complicating childbirth; Q90.9 Down syndrome, unspecified; O61.9 Failed induction of labor, unspecified; Z3A.39 39 weeks gestation of pregnancy; Z37.0 Single live birth; Z23 Encounter for immunization
CPT/HCPCS: 36415; 80048; 80076; 81001; 82565; 83615; 83735; 84450; 84460; 84550; 85014; 85018; 85025; 85027; 85610; 85730; 86850; 86900; 86901; 87086; 90471; 90686; 90715; G0378; G0008; J0290; J0360; J0595; J0690; J1170; J1885; J2270; J2405; J2590; J2765; J3475; J3490; J7120

== ENCOUNTER 2019-09-03 08:32 | Emergency (ER) | payer MEDICAID ==
[2019-09-03 10:01] LABS: Bacteria,Urine 1+ /HPF (Negative); Bilirubin,Urine NEG (Negative); Blood,Urine LG (Negative); Color,Urine Yellow (Yellow); Mucus,Urine FEW /HPF; Protein,Urine <15 mg/dL mg/dL (Negative); Urobilinogen,Urine < 2.0 mg/dL (<2.0)
[2019-09-03 10:04] LABS: RBC,Urine > 182.0 /HPF (0.0-6.0)
[2019-09-03 10:45] LABS: Basophils % (Auto) 0.5 % (0.0-1.8); Eosinophils % (Auto) 0.2 % (0.0-4.3); Hematocrit 33.2 % (30.3-42.9); Hemoglobin 10.8 gm/dl (10.1-14.3); Lymphocytes # (Auto) 0.8 K/mm3 (1.2-5.4); Mean Corpuscular HGB Conc 32 % (30-34); Mean Corpuscular Volume 80 fl (79-97); Monocytes # (Auto) 0.5 K/mm3 (0.0-0.8); Monocytes % (Auto) 7.7 % (0.0-7.3); Platelet Count 190 K/mm3 (140-440); Red Blood Count 4.17 M/mm3 (3.65-5.03); Red Cell Distribution Width 15.5 % (13.2-15.2)
--- NOTE | 2019-09-03 11:18 | Emergency Department Report ---
ED General Adult HPI - General Chief complaint: Skin/Abscess/Foreign Body Stated complaint: PAIN Time Seen by Provider: 09/03/19 09:10 Source: patient Mode of arrival: Wheelchair Limitations: No Limitations - History of Present Illness Initial comments: 18-year-old -[place] female presents to the emergency room complaining of scar pain. Patient reports had a 3 months ago. Patient denies any drainage. 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 Patient's last menstrual period was 09/03/2019. Patient denies any fever chills no nausea no vomiting. Patient denies any dysuria no vaginal discharge. Onset/Timin -: days(s) Location: pelvis Severity scale (0 -10): 6 Quality: aching Consistency: intermittent Improves with: none Worsens with: none Associated Symptoms: denies other symptoms Treatments Prior to Arrival: none - Related Data Previous Rx's Medication Instructions Recorded Last Taken Type Ferrous Sulfate [Feosol 325 MG tab] 325 mg PO BID #60 tablet 06/16/19 Unknown Rx Ibuprofen [Motrin] 800 mg PO Q8HR PRN #30 tablet 06/16/19 Unknown Rx oxyCODONE /ACETAMINOPHEN [Percocet 1 tab PO Q6HR PRN #40 tablet 06/16/19 Unknown Rx 5/325] Nitrofurantoin Wise/M-Cryst 100 mg PO Q12HR 10 Days #20 capsule 09/03/19 Unknown Rx [Macrobid CAP] Allergies Allergy/AdvReac Type Severity Reaction Status Date / Time No Known Allergies Allergy Verified 06/12/19 15:31 ED Review of Systems ROS: Stated complaint: PAIN Other details as noted in HPI ED Past Medical Hx - Past Medical History Previous Medical History?: No Hx Hypertension: No Hx Congestive Heart Failure: No Hx Diabetes: No Hx Deep Vein Thrombosis: No Hx Renal Disease: No Hx Sickle Cell Disease: No Hx Seizures: No Hx Asthma: No Hx COPD: No Hx HIV: No - Surgical History Past Surgical History?: Yes Additional Surgical History: C section - Social History Smoking Status: Never Smoker Substance Use Type: None - Medications Home Medications: Home Medications Medication Instructions Recorded Confirmed Last Taken Type Ferrous Sulfate [Feosol 325 MG tab] 325 mg PO BID #60 tablet 06/16/19 Unknown Rx Ibuprofen [Motrin] 800 mg PO Q8HR PRN #30 tablet 06/16/19 Unknown Rx oxyCODONE /ACETAMINOPHEN [Percocet 1 tab PO Q6HR PRN #40 tablet 06/16/19 Unknown Rx 5/325] Nitrofurantoin Wise/M-Cryst 100 mg PO Q12HR 10 Days #20 capsule 09/03/19 Unknown Rx [Macrobid CAP] ED Physical Exam - General Limitations: No Limitations General appearance: alert, in no apparent distress - Head Head exam: Present: atraumatic, normocephalic - Eye Eye exam: Present: normal appearance - ENT ENT exam: Present: mucous membranes moist - Respiratory Respiratory exam: Present: normal lung sounds bilaterally. Absent: respiratory distress - Cardiovascular Cardiovascular Exam: Present: regular rate, normal rhythm. Absent: systolic mu rmur, diastolic murmur, rubs, gallop - GI/Abdominal GI/Abdominal exam: Present: soft, tenderness. Absent: distended - Back Exam Back exam: Present: normal inspection - Neurological Exam Neurological exam: Present: alert, oriented X3, normal gait - Psychiatric Psychiatric exam: Present: normal affect, normal mood - Skin Skin exam: Present: warm, dry, intact, normal color. Absent: rash ED Medical Decision Making - Lab Data Result diagrams: 09/03/19 10:09 Laboratory Tests 09/03/19 09/03/19 09/03/19 10:09 10:09 Unknown WBC 6.1 RBC 4.17 Hgb 10.8 Hct 33.2 MCV 80 MCH 26 L MCHC 32 RDW 15.5 H Plt Count 190 Lymph % (Auto) 14.0 Wise % (Auto) 7.7 H Eos % (Auto) 0.2 Baso % (Auto) 0.5 Lymph # 0.8 L Wise # 0.5 Eos # 0.0 Baso # 0.0 Seg Neutrophils % 77.6 H Seg Neutrophils # 4.7 HCG, Quant < 2 Urine Color Yellow Urine Turbidity Clear Urine pH 5.0 Ur Specific [place] 1.018 Urine Protein <15 mg/dl Urine Glucose (UA) Neg Urine Ketones Neg Urine Blood Lg Urine Nitrite Neg Urine Bilirubin Neg Urine Urobilinogen < 2.0 Ur Leukocyte Esterase Tr Urine WBC (Auto) 13.0 H Urine RBC (Auto) > 182.0 U Epithel Cells (Auto) 2.0 Urine Bacteria (Auto) 1+ Urine Mucus Few Urine Yeast (Budding) Few - Medical Decision Making 18-year-old -[place] female presents to the emergency room complaining of scar pain. Patient reports had a 3 months ago. Patient denies any drainage. 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 Patient's last menstrual period was 09/03/2019. Patient denies any fever chills no nausea no vomiting. Patient denies any dysuria no vaginal discharge. Patient appears to have a urinary tract infection will place her on Macrobid she can take ibuprofen or Tylenol for pain management. Patient can follow-up with her [employer]LINE MARKETING SPECIALIST. Critical care attestation.: If time is entered above; I have spent that time in minutes in the direct care of this critically ill patient, excluding procedure time. ED Disposition Clinical Impression: UTI (urinary tract infection) Disposition: DC- TO HOME OR SELFCARE Is pt being admited?: No Does the pt Need Aspirin: No Condition: Stable Instructions: Urinary Tract Infection in Women (ED) Additional Instructions: Complete antibiotics as prescribed increase your fluid intake take Tylenol or ibuprofen as needed for pain management. Follow-up with your [employer]LINE MARKETING SPECIALIST provider in the next 3 to 5 days for repeat urine Prescriptions: Nitrofurantoin Wise/M-Cryst [Macrobid CAP] 100 mg PO Q12HR 10 Days #20 capsule Referrals: PRIMARY CARE, [Primary Care Provider] - 3-5 Days
[2019-09-03 11:22] VITALS: BP 127/84
[2019-09-03 11:47] LABS: Alanine Aminotransferase 12 units/L (7-56); Albumin 4.1 g/dL (3.9-5); BUN/Creatinine Ratio 23; Blood Urea Nitrogen 18 mg/dL (7-17); Calcium 9.4 mg/dL (8.4-10.2); Hemolysis Index 0
== END 2019-09-03 11:27 | disposition home or self-care (01) ==
LOC: ED 08:32
DX: N39.0 Urinary tract infection, site not specified (principal); Z98.890 Other specified postprocedural states; Z79.1 Long term (current) use of non-steroidal anti-inflammatories (NSAID); Z79.899 Other long term (current) drug therapy
CPT/HCPCS: 36415; 80053; 81001; 84702; 85025; 87086; 99283